=== PATIENT | male | born 1990 | race Hispanic/Latino ===

== ENCOUNTER 2021-06-29 08:36 | Emergency (ER) | payer SELFPAY ==
[~2021-06-29] VITALS: Ht 175.3 cm; Wt 108.9 kg
[2021-06-29 08:38] VITALS: BP 140/93
[2021-06-29] MEDS ORDERED: OCTYL 2-CYANOACRYLATE 1 EACH TP ONE (10:09)
[2021-06-29] MEDS ORDERED: CEPH500B PO (10:18)
== END 2021-06-29 10:30 | disposition home or self-care (01) ==
LOC: EDH 08:36
DX: S61.012A Laceration without foreign body of left thumb without damage to nail, initial encounter (principal); W45.8XXA Other foreign body or object entering through skin, initial encounter; Y93.89 Activity, other specified; Y92.89 Other specified places as the place of occurrence of the external cause; Y99.8 Other external cause status
CPT/HCPCS: 12001; 99282

== ENCOUNTER 2024-05-29 22:45 | Emergency (ER) | payer BC ==
[~2024-05-29] VITALS: Ht 172.7 cm; Wt 108.9 kg
[~2024-05-29 22:45] MED LIST: CEPH500B PO
[2024-05-30] MEDS: NEOMY SULF/BACITRA/POLYMYXIN B 1 EACH PACKET TP ONE (00:18)
[2024-05-30] MEDS: HYDROCODONE/ACETAMINOPHEN 5/325 MG TAB PO ONE (00:18)
[2024-05-30] MEDS ORDERED: CLIN-141 PO (01:14)
[2024-05-30 02:02] VITALS: BP 119/64; PULSE 88; RESP 15; O2SAT 99
== END 2024-05-30 02:01 | disposition home or self-care (01) ==
LOC: EDH 22:45
DX: T24.012A Burn of unspecified degree of left thigh, initial encounter (principal); J45.909 Unspecified asthma, uncomplicated; Z79.899 Other long term (current) drug therapy; X08.8XXA Exposure to other specified smoke, fire and flames, initial encounter; Y93.E9 Activity, other interior property and clothing maintenance; Y92.89 Other specified places as the place of occurrence of the external cause; Y99.8 Other external cause status
CPT/HCPCS: 16000